=== PATIENT | female | born 1955 | race Caucasian/White ===

== ENCOUNTER 2021-10-30 19:01 | Emergency (ER) | payer OTHER ==
[2021-10-30 19:23] VITALS: TEMP 97.9; BMI 25.0
[2021-10-30 22:14] VITALS: PULSE 72
[2021-10-30] MEDS ORDERED: ACETAMINOPHEN 1000 MG/100 ML BAG IVPB ONE (22:18)
[2021-10-30] MEDS ORDERED: metoPROLOL SUCCINATE 25 MG TAB.SR.24H (FP) PO ONE (22:22)
[2021-10-30] MEDS ORDERED: metoPROLOL SUCCINATE 25 MG TAB.SR.24H (FP) ONE (22:26)
[2021-10-30] MEDS ORDERED: ACETAMINOPHEN INJECTION 100 ML IVPB ONE (22:27)
[2021-10-30 23:06] LABS: BASO % 1.2 % (0-2.0); EOS % 1.2 % (0-4.5); HEMATOCRIT 39.6 % (32.4-45.2); HEMOGLOBIN 13.2 GM/dL (10.7-15.3); LYMPH % 36.9 % (8-40); MCH 28.9 pg (25.7-33.7); MCHC 33.2 g/dl (32.0-36.0); MEAN PLT VOLUME 7.7 fl (7.5-11.1); MONO % 11.4 % (3.8-10.2); NEUT % 49.3 % (42.8-82.8); PLATELET COUNT 318 10^3/uL (134-434); RBC 4.56 M/mm3 (3.60-5.2); RDW 13.7 % (11.6-15.6); WHITE BLOOD COUNT 6.9 K/mm3 (4.0-10.0)
[2021-10-30 23:27] LABS: CALCIUM 8.8 mg/dL (8.5-10.1)
[2021-10-30 23:28] LABS: ALBUMIN 3.6 g/dl (3.4-5.0)
[2021-10-30 23:31] LABS: CREATININE 0.8 mg/dL (0.55-1.3)
[2021-10-30 23:33] LABS: BILIRUBIN,TOTAL 0.8 mg/dL (0.2-1); TOT PROT 7.3 g/dl (6.4-8.2)
[2021-10-31] MEDS ORDERED: NIFEdipine E.R. 30 MG TABLET PO STA (01:13)
[2021-10-31 01:15] VITALS: BP 160/90
[2021-10-31] MEDS ORDERED: NIFEdipine E.R. 30 MG TABLET ONE (01:34)
[2021-10-31] MEDS ORDERED: NIFEdipine E.R. 30 MG TABLET PO SCH (10:00)
== END 2021-10-31 02:00 | disposition home or self-care (01) ==
LOC: JER 19:01
PROC: 3E0333Z Introduction of Anti-inflammatory into Peripheral Vein, Percutaneous Approach (ICD-10-PCS; principal; 2021-10-30)
DX: R51.9 Headache, unspecified (principal); I10 Essential (primary) hypertension
CPT/HCPCS: 36415; 70450-TC; 80053; 84484; 85025; 93005; 93010; 99285-25